=== PATIENT | male | born 1985 | race Caucasian/White ===

== ENCOUNTER 2022-07-14 05:44 | Emergency (ER) | payer SELFPAY ==
[2022-07-14 06:44] LABS: HEMOGLOBIN 13.2 gm/dl (14.0-17.5); RED BLOOD COUNT 5.08 M/UL (4.20-5.50); WHITE BLOOD COUNT 9.7 K/UL (4.5-11.0)
[2022-07-14 07:11] LABS: BUN/CREATININE RATIO 24 (0-10)
[2022-07-14] MEDS ORDERED: CHRONULAC20 GM/30 M PO (13:02)
[2022-07-14] MEDS ORDERED: COLACE 100MG C100 MG PO (13:02)
== END 2022-07-14 14:00 | disposition home or self-care (01) ==
LOC: ER1 05:44
PROVIDERS: Physician Assistant
DX: K59.00 Constipation, unspecified (principal); F17.210 Nicotine dependence, cigarettes, uncomplicated
CPT/HCPCS: 71045; 80053; 81001; 83605; 83690; 85025; 93005; 96361; 96374; 96375; 99284; J2270; J2405; J2765; Q9967